=== PATIENT | male | born 1950 | race Caucasian/White ===

== ENCOUNTER → 2017-03-03 | Outpatient (CLI) | payer OTHER ==
[~2017-03-03] MED LIST: ASPIR 8181 M1 PO; LEVOFLOXACIN500 MG PO; LISINOPRIL10 MG PO
== END | disposition home or self-care (01) ==
LOC: CDC 14:19
DX: Z01.810 Encounter for preprocedural cardiovascular examination (principal)
CPT/HCPCS: 93000